=== PATIENT | male | born 1980 ===

== ENCOUNTER 2019-11-30 02:17 | Emergency (ER) | payer SELFPAY ==
[~2019-11-30] VITALS: Ht 172.7 cm; Wt 85.0 kg
[2019-11-30 02:24] VITALS: BP 118/80
--- NOTE | 2019-11-30 02:24 | NUR ---
[facility] FROM [facility] WHERE PT WAS DENIED FOR BEING 'NON AMBULATORY' SECONDARY TO ETOH. PT ARRIVES AMBULATORY WITH STANDY BY ASSISTANCE. A&OX4, SPEECH MILDLY SLURRED. DENIES MEDICAL COMPLAINTS
--- NOTE | 2019-11-30 03:42 | NUR ---
PT TO BE TRANSFERED TO ROOM 17. PT INITIALLY REFUSING TRANSFER TO WHEELCHAIR, MULTIPLE ASSIST NEEDED FOR TRANSFER. UPON TRANSFER PT MOVING ALL EXTREMITIES WO DIFFICULTY AND RE-ADJUSTING SELF IN WHEELCHIAR. PT TRANSFERED SELF TO [facility] IN ROOM 17 WO ASSISTANCE. REPORT TO MILTON ESTRADA
--- NOTE | 2019-11-30 04:17 | NUR ---
PT RESTING ON GURNEY WITH EYES CLOSED. RESPIRATIONS EVEN AND NONLABORED. CALL LIGHT WITHIN REACH. X2 RAILS RAISED, BED IN LOW POSTITION.
--- NOTE | 2019-11-30 05:46 | NUR ---
PT RESTING ON GURNEY WITH EYES CLOSED, RESPIRATIONS EVEN AND NONLABORED. CALL LIGHT WITHIN REACH.
== END 2019-11-30 06:10 | disposition home or self-care (01) ==
LOC: ED 03:17
DX: F10.120 Alcohol abuse with intoxication, uncomplicated (principal); Y90.9 Presence of alcohol in blood, level not specified
CPT/HCPCS: 99283; 99284